=== PATIENT | male | born 1940 | race African-American/Black ===

== ENCOUNTER → 2017-04-29 | Outpatient (CLI) | payer MEDICARE | END | disposition home or self-care (01) | LOC: PVL 09:17 | PROVIDERS: ATTEND Internal Medicine Nephrology | DX: I73.9 Peripheral vascular disease, unspecified (principal) | CPT/HCPCS: 93923 ==

== ENCOUNTER 2017-11-20 19:00 | Inpatient (IN) | payer MEDICARE ==
[~2017-11-20] VITALS: Ht 180.3 cm; Wt 83.5 kg
[~2017-11-20 19:00] MED LIST: AMLO10TA80 PO; CLOP75TA16 PO; FURO40TA5 PO; HYDR-4134 PO; OLME40TA11 PO; RAMI10CA19 PO; ROSU20TA PO
[2017-11-20 19:45] VITALS: BP 156/86
[2017-11-20 20:00] VITALS: BP 156/86
[2017-11-20] MEDS ORDERED: HYDROMORPHONE HCL/PF 2MG/ML CPJ IV PRN (21:45)
[2017-11-20] MEDS ORDERED: MAGNESIUM/ALUMINUM HYDROXIDE/SIMETHICONE 30ML UDC PO PRN (21:45)
[2017-11-20] MEDS ORDERED: LORAZEPAM 2MG/ML CPJ IV PRN (21:45)
[2017-11-20] MEDS ORDERED: HYDROCODONE/ACETAMINOPHEN 5/325MG TABLET PO PRN (21:45)
[2017-11-20] MEDS ORDERED: ONDANSETRON HCL 4MG/2ML INJ IV PRN (21:45)
[2017-11-20] MEDS ORDERED: DIPHENHYDRAMINE 50MG/ML VIAL IV PRN (21:45)
[2017-11-20] MEDS ORDERED: GUAIFENESIN 200MG/10ML SUGAR FREE UDC PO PRN (21:45)
[2017-11-20] MEDS ORDERED: IPRATROPIUM/ALBUTEROL 0.5-3(2.5)MG/3ML NEB HHN PRN (21:45)
[2017-11-20] MEDS ORDERED: NA PHOS,M-B/NA PHOS,DI-BA ENEMA 118ML PR PRN (21:45)
[2017-11-20] MEDS: LABETALOL HCL 100MG TABLET PO SCH (22:00)
[2017-11-20] MEDS: ATORVASTATIN CALCIUM 10MG TABLET PO SCH (23:17)
[2017-11-20] MEDS: LOSARTAN POTASSIUM 50 MG TABLET PO SCH (23:18)
[2017-11-21] MEDS: HYDRALAZINE HCL 50MG TABLET PO SCH ×5 (06:32→23:21)
[2017-11-21 08:30] VITALS: BP 150/69
[2017-11-21] MEDS: LABETALOL HCL 100MG TABLET PO SCH ×2 (08:57→22:00)
[2017-11-21] MEDS: AMLODIPINE 10MG TABLET PO SCH (08:58)
[2017-11-21] MEDS: ASPIRIN 81MG EC TABLET PO SCH (08:58)
[2017-11-21] MEDS: LOSARTAN POTASSIUM 50 MG TABLET PO SCH ×2 (08:58→20:59)
[2017-11-21] MEDS: ENOXAPARIN 40MG/0.4ML SYR SUBCUT SCH (09:03)
[2017-11-21 20:00] VITALS: BP 125/71
[2017-11-21] MEDS: ATORVASTATIN CALCIUM 10MG TABLET PO SCH (20:59)
[2017-11-22] MEDS: HYDRALAZINE HCL 50MG TABLET PO SCH ×3 (06:32→17:32)
[2017-11-22 08:00] VITALS: BP 104/59
[2017-11-22] MEDS: AMLODIPINE 10MG TABLET PO SCH (08:49)
[2017-11-22] MEDS: ENOXAPARIN 40MG/0.4ML SYR SUBCUT SCH (08:49)
[2017-11-22] MEDS: LOSARTAN POTASSIUM 50 MG TABLET PO SCH ×2 (08:49→22:30)
[2017-11-22] MEDS: ASPIRIN 81MG EC TABLET PO SCH (08:49)
[2017-11-22] MEDS: LABETALOL HCL 100MG TABLET PO SCH ×2 (08:49→21:00)
[2017-11-22 19:53] VITALS: BP 120/67
[2017-11-22] MEDS: ATORVASTATIN CALCIUM 10MG TABLET PO SCH (22:30)
[2017-11-23] MEDS: HYDRALAZINE HCL 50MG TABLET PO SCH ×4 (00:58→18:02)
[2017-11-23 06:15] LABS: BASOPHILS % 0.7 % (0.0-2.0); EOSINOPHILS % 4.2 % (0.0-5.0); HEMATOCRIT. 37.2 % (42.0-52.0); HEMOGLOBIN. 12.4 g/dL (14.0-18.0); LYMPHOCYTES % 31.9 % (20.0-50.0); MEAN CORPUSCULAR VOLUME 93.1 fL (80.0-94.0); MEAN PLATELET VOLUME 8.1 fl (7.4-10.4); MONOCYTES % 11.3 % (2.0-8.0); NEUTROPHILS % 51.9 % (40.0-76.0); PLATELET 252 x1000/uL (130-400); RED BLOOD CELL COUNT 3.99 mill/uL (4.7-6.1); RED CELL DISTRIBUTION WIDTH 15.4 % (11.6-14.6)
[2017-11-23 08:05] LABS: CHLORIDE 111 mEq/L (98-107)
[2017-11-23 08:13] VITALS: BP 125/67
[2017-11-23] MEDS ORDERED: ASPIRIN 81MG EC TABLET PO SCH (09:00)
[2017-11-23] MEDS: DOCUSATE SODIUM 100MG CAPSULE PO PRN (09:06)
[2017-11-23] MEDS: LOSARTAN POTASSIUM 50 MG TABLET PO SCH ×2 (09:07→21:07)
[2017-11-23] MEDS: ASPIRIN 81MG EC TABLET PO SCH (09:07)
[2017-11-23] MEDS: AMLODIPINE 10MG TABLET PO SCH (09:08)
[2017-11-23] MEDS: ENOXAPARIN 40MG/0.4ML SYR SUBCUT SCH (09:08)
[2017-11-23] MEDS: LABETALOL HCL 100MG TABLET PO SCH ×2 (09:13→21:00)
[2017-11-23 20:00] VITALS: BP 135/81
[2017-11-23] MEDS: ATORVASTATIN CALCIUM 10MG TABLET PO SCH (21:07)
[2017-11-24] MEDS: HYDRALAZINE HCL 50MG TABLET PO SCH ×4 (06:12→18:10)
[2017-11-24 08:00] VITALS: BP 140/70
[2017-11-24] MEDS: ENOXAPARIN 40MG/0.4ML SYR SUBCUT SCH (08:16)
[2017-11-24] MEDS: LABETALOL HCL 100MG TABLET PO SCH ×2 (08:17→21:00)
[2017-11-24] MEDS: AMLODIPINE 10MG TABLET PO SCH (08:18)
[2017-11-24] MEDS: LOSARTAN POTASSIUM 50 MG TABLET PO SCH ×2 (08:18→21:41)
[2017-11-24] MEDS: ASPIRIN 81MG EC TABLET PO SCH (08:18)
[2017-11-24] MEDS: ACETAMINOPHEN 325MG TABLET PO PRN (11:03)
[2017-11-24 20:00] VITALS: BP 120/91
[2017-11-24] MEDS: ATORVASTATIN CALCIUM 10MG TABLET PO SCH (21:41)
[2017-11-25] MEDS: HYDRALAZINE HCL 50MG TABLET PO SCH ×4 (00:57→17:46)
[2017-11-25 08:13] VITALS: BP 123/63
[2017-11-25] MEDS: AMLODIPINE 10MG TABLET PO SCH (09:00)
[2017-11-25] MEDS: LABETALOL HCL 100MG TABLET PO SCH ×2 (09:00→21:00)
[2017-11-25] MEDS: LOSARTAN POTASSIUM 50 MG TABLET PO SCH ×2 (09:23→21:33)
[2017-11-25] MEDS: ENOXAPARIN 40MG/0.4ML SYR SUBCUT SCH (09:24)
[2017-11-25] MEDS: ASPIRIN 81MG EC TABLET PO SCH (09:24)
[2017-11-25 20:00] VITALS: BP 139/70
[2017-11-25] MEDS: ATORVASTATIN CALCIUM 10MG TABLET PO SCH (21:33)
[2017-11-26] MEDS: HYDRALAZINE HCL 50MG TABLET PO SCH ×5 (00:53→23:58)
[2017-11-26 08:09] VITALS: BP 128/69
[2017-11-26] MEDS: AMLODIPINE 10MG TABLET PO SCH (09:14)
[2017-11-26] MEDS: LABETALOL HCL 100MG TABLET PO SCH ×2 (09:14→20:28)
[2017-11-26] MEDS: ASPIRIN 81MG EC TABLET PO SCH (09:14)
[2017-11-26] MEDS: LOSARTAN POTASSIUM 50 MG TABLET PO SCH ×2 (09:14→20:27)
[2017-11-26] MEDS: ENOXAPARIN 40MG/0.4ML SYR SUBCUT SCH (09:15)
[2017-11-26] MEDS: BISACODYL 5MG TABLET PO PRN (14:57)
[2017-11-26 20:00] VITALS: BP 136/72
[2017-11-26] MEDS: ATORVASTATIN CALCIUM 10MG TABLET PO SCH (20:27)
[2017-11-27] MEDS: HYDRALAZINE HCL 50MG TABLET PO SCH ×4 (05:09→23:28)
[2017-11-27 08:00] VITALS: BP 129/68
[2017-11-27] MEDS: ASPIRIN 81MG EC TABLET PO SCH (08:54)
[2017-11-27] MEDS: LOSARTAN POTASSIUM 50 MG TABLET PO SCH ×2 (08:54→20:57)
[2017-11-27] MEDS: AMLODIPINE 10MG TABLET PO SCH (08:54)
[2017-11-27] MEDS: LABETALOL HCL 100MG TABLET PO SCH ×2 (08:54→20:57)
[2017-11-27] MEDS: ENOXAPARIN 40MG/0.4ML SYR SUBCUT SCH (08:55)
[2017-11-27 20:00] VITALS: BP 137/62
[2017-11-27] MEDS: ATORVASTATIN CALCIUM 10MG TABLET PO SCH (20:57)
[2017-11-28] MEDS: HYDRALAZINE HCL 50MG TABLET PO SCH ×3 (05:36→18:03)
[2017-11-28 08:00] VITALS: BP 112/67
[2017-11-28] MEDS: AMLODIPINE 10MG TABLET PO SCH (08:47)
[2017-11-28] MEDS: LABETALOL HCL 100MG TABLET PO SCH ×2 (08:48→21:00)
[2017-11-28] MEDS: ASPIRIN 81MG EC TABLET PO SCH (08:48)
[2017-11-28] MEDS: LOSARTAN POTASSIUM 50 MG TABLET PO SCH ×2 (08:49→21:46)
[2017-11-28] MEDS: ENOXAPARIN 40MG/0.4ML SYR SUBCUT SCH (08:49)
[2017-11-28 20:00] VITALS: BP 120/59
[2017-11-28] MEDS: ATORVASTATIN CALCIUM 10MG TABLET PO SCH (21:46)
[2017-11-29] MEDS: HYDRALAZINE HCL 50MG TABLET PO SCH ×4 (06:00→17:16)
[2017-11-29 08:06] VITALS: BP 130/79
[2017-11-29] MEDS: AMLODIPINE 10MG TABLET PO SCH (08:58)
[2017-11-29] MEDS: LABETALOL HCL 100MG TABLET PO SCH ×2 (08:58→20:30)
[2017-11-29] MEDS: ASPIRIN 81MG EC TABLET PO SCH (08:58)
[2017-11-29] MEDS: LOSARTAN POTASSIUM 50 MG TABLET PO SCH ×2 (08:58→20:29)
[2017-11-29] MEDS: ENOXAPARIN 40MG/0.4ML SYR SUBCUT SCH (08:59)
[2017-11-29 20:00] VITALS: BP 137/68
[2017-11-29] MEDS: ATORVASTATIN CALCIUM 10MG TABLET PO SCH (20:29)
[2017-11-29] MEDS: BISACODYL 5MG TABLET PO PRN (20:30)
[2017-11-30] MEDS: HYDRALAZINE HCL 50MG TABLET PO SCH ×4 (01:01→18:04)
[2017-11-30 07:02] LABS: BASOPHILS % 0.5 % (0.0-2.0); EOSINOPHILS % 4.3 % (0.0-5.0); HEMATOCRIT. 35.2 % (42.0-52.0); HEMOGLOBIN. 11.6 g/dL (14.0-18.0); LYMPHOCYTES % 41.2 % (20.0-50.0); MEAN CORPUSCULAR HEMOGLOBIN 30.5 pg (28.0-32.0); MEAN CORPUSCULAR VOLUME 92.6 fL (80.0-94.0); MEAN PLATELET VOLUME 7.9 fl (7.4-10.4); MONOCYTES % 10.3 % (2.0-8.0); NEUTROPHILS % 43.7 % (40.0-76.0); PLATELET 262 x1000/uL (130-400); RED CELL DISTRIBUTION WIDTH 14.6 % (11.6-14.6)
[2017-11-30 07:16] LABS: CHLORIDE 108 mEq/L (98-107)
[2017-11-30 08:00] VITALS: BP 111/63
[2017-11-30] MEDS: AMLODIPINE 10MG TABLET PO SCH (08:10)
[2017-11-30] MEDS: DOCUSATE SODIUM 100MG CAPSULE PO PRN (08:10)
[2017-11-30] MEDS: LOSARTAN POTASSIUM 50 MG TABLET PO SCH ×2 (08:10→21:14)
[2017-11-30] MEDS: ENOXAPARIN 40MG/0.4ML SYR SUBCUT SCH (08:10)
[2017-11-30] MEDS: ASPIRIN 81MG EC TABLET PO SCH (08:11)
[2017-11-30] MEDS: LABETALOL HCL 100MG TABLET PO SCH ×2 (08:11→21:00)
[2017-11-30] MEDS: LACTULOSE 20G/30ML UDC PO SCH ×2 (13:06→21:15)
[2017-11-30 20:00] VITALS: BP 131/68
[2017-11-30] MEDS: ATORVASTATIN CALCIUM 10MG TABLET PO SCH (21:13)
[2017-12-01] MEDS: LACTULOSE 20G/30ML UDC PO SCH ×3 (06:00→21:18)
[2017-12-01] MEDS: HYDRALAZINE HCL 50MG TABLET PO SCH ×5 (06:02→23:14)
[2017-12-01 08:03] VITALS: BP 116/68
[2017-12-01] MEDS: ASPIRIN 81MG EC TABLET PO SCH (08:16)
[2017-12-01] MEDS: LABETALOL HCL 100MG TABLET PO SCH ×2 (08:16→21:18)
[2017-12-01] MEDS: ENOXAPARIN 40MG/0.4ML SYR SUBCUT SCH (08:17)
[2017-12-01] MEDS: AMLODIPINE 10MG TABLET PO SCH (09:00)
[2017-12-01] MEDS: LOSARTAN POTASSIUM 50 MG TABLET PO SCH ×2 (09:00→21:17)
[2017-12-01 12:15] VITALS: BP 98/55
[2017-12-01 20:00] VITALS: BP 135/78
[2017-12-01] MEDS: ATORVASTATIN CALCIUM 10MG TABLET PO SCH (21:17)
[2017-12-02] MEDS: HYDRALAZINE HCL 50MG TABLET PO SCH (05:47)
[2017-12-02] MEDS: LACTULOSE 20G/30ML UDC PO SCH ×3 (05:48→21:03)
[2017-12-02 07:57] VITALS: BP 110/59
[2017-12-02] MEDS: LOSARTAN POTASSIUM 50 MG TABLET PO SCH ×2 (08:43→20:48)
[2017-12-02] MEDS: AMLODIPINE 10MG TABLET PO SCH (08:43)
[2017-12-02] MEDS: LABETALOL HCL 100MG TABLET PO SCH ×2 (08:44→20:48)
[2017-12-02] MEDS: ASPIRIN 81MG EC TABLET PO SCH (09:05)
[2017-12-02] MEDS: ENOXAPARIN 40MG/0.4ML SYR SUBCUT SCH (09:06)
[2017-12-02 20:00] VITALS: BP 133/76
[2017-12-02] MEDS: ATORVASTATIN CALCIUM 10MG TABLET PO SCH (20:48)
[2017-12-02] MEDS: ACETAMINOPHEN 325MG TABLET PO PRN (23:48)
[2017-12-03] MEDS: LACTULOSE 20G/30ML UDC PO SCH ×3 (05:09→21:32)
[2017-12-03 08:00] VITALS: BP 127/70
[2017-12-03] MEDS: AMLODIPINE 10MG TABLET PO SCH (09:00)
[2017-12-03] MEDS: LABETALOL HCL 100MG TABLET PO SCH ×2 (09:10→20:30)
[2017-12-03] MEDS: LOSARTAN POTASSIUM 50 MG TABLET PO SCH ×2 (09:10→20:29)
[2017-12-03] MEDS: ASPIRIN 81MG EC TABLET PO SCH (09:10)
[2017-12-03] MEDS: ENOXAPARIN 40MG/0.4ML SYR SUBCUT SCH (09:11)
[2017-12-03 20:00] VITALS: BP 125/60
[2017-12-03] MEDS: ATORVASTATIN CALCIUM 10MG TABLET PO SCH (20:29)
[2017-12-04] MEDS: LACTULOSE 20G/30ML UDC PO SCH ×3 (05:30→20:49)
[2017-12-04 08:00] VITALS: BP 132/74
[2017-12-04] MEDS: AMLODIPINE 10MG TABLET PO SCH (08:38)
[2017-12-04] MEDS: LOSARTAN POTASSIUM 50 MG TABLET PO SCH ×2 (08:38→20:49)
[2017-12-04] MEDS: ENOXAPARIN 40MG/0.4ML SYR SUBCUT SCH (08:39)
[2017-12-04] MEDS: LABETALOL HCL 100MG TABLET PO SCH ×2 (08:39→20:49)
[2017-12-04] MEDS: ASPIRIN 81MG EC TABLET PO SCH (08:39)
[2017-12-04 20:00] VITALS: BP 121/64
[2017-12-04] MEDS: ATORVASTATIN CALCIUM 10MG TABLET PO SCH (20:49)
[2017-12-05] MEDS: LACTULOSE 20G/30ML UDC PO SCH (05:55)
[2017-12-05 08:18] VITALS: BP 131/74
[2017-12-05] MEDS: AMLODIPINE 10MG TABLET PO SCH (08:29)
[2017-12-05] MEDS: LABETALOL HCL 100MG TABLET PO SCH ×2 (08:29→20:45)
[2017-12-05] MEDS: ASPIRIN 81MG EC TABLET PO SCH (08:29)
[2017-12-05] MEDS: LOSARTAN POTASSIUM 50 MG TABLET PO SCH ×2 (08:29→20:45)
[2017-12-05] MEDS: ENOXAPARIN 40MG/0.4ML SYR SUBCUT SCH (08:30)
[2017-12-05 20:00] VITALS: BP 122/62
[2017-12-05] MEDS: ATORVASTATIN CALCIUM 10MG TABLET PO SCH (20:45)
[2017-12-06 07:59] VITALS: BP 122/69
[2017-12-06] MEDS: ASPIRIN 81MG EC TABLET PO SCH (08:23)
[2017-12-06] MEDS: LOSARTAN POTASSIUM 50 MG TABLET PO SCH ×2 (08:23→21:25)
[2017-12-06] MEDS: ENOXAPARIN 40MG/0.4ML SYR SUBCUT SCH (08:24)
[2017-12-06] MEDS: LABETALOL HCL 100MG TABLET PO SCH ×3 (08:29→21:00)
[2017-12-06] MEDS: AMLODIPINE 10MG TABLET PO SCH (08:30)
[2017-12-06 20:00] VITALS: BP 128/59
[2017-12-06] MEDS: ATORVASTATIN CALCIUM 10MG TABLET PO SCH (21:25)
[2017-12-07 07:19] LABS: BASOPHILS % 0.5 % (0.0-2.0); EOSINOPHILS % 3.6 % (0.0-5.0); HEMATOCRIT. 35.2 % (42.0-52.0); HEMOGLOBIN. 11.6 g/dL (14.0-18.0); LYMPHOCYTES % 39.6 % (20.0-50.0); MEAN CORPUSCULAR HEMOGLOBIN 30.4 pg (28.0-32.0); MEAN CORPUSCULAR VOLUME 92.1 fL (80.0-94.0); MONOCYTES % 9.4 % (2.0-8.0); NEUTROPHILS % 46.9 % (40.0-76.0); PLATELET 262 x1000/uL (130-400); RED BLOOD CELL COUNT 3.83 mill/uL (4.7-6.1); RED CELL DISTRIBUTION WIDTH 14.7 % (11.6-14.6)
[2017-12-07 07:49] LABS: CHLORIDE 109 mEq/L (98-107)
[2017-12-07 08:00] VITALS: BP 137/77
[2017-12-07] MEDS: ASPIRIN 81MG EC TABLET PO SCH (08:07)
[2017-12-07] MEDS: AMLODIPINE 10MG TABLET PO SCH (08:07)
[2017-12-07] MEDS: LOSARTAN POTASSIUM 50 MG TABLET PO SCH ×2 (08:07→21:42)
[2017-12-07] MEDS: LABETALOL HCL 100MG TABLET PO SCH ×2 (08:08→21:00)
[2017-12-07] MEDS: ENOXAPARIN 40MG/0.4ML SYR SUBCUT SCH (08:08)
[2017-12-07 20:00] VITALS: BP 132/79
[2017-12-07] MEDS: ATORVASTATIN CALCIUM 10MG TABLET PO SCH (21:42)
[2017-12-08 08:00] VITALS: BP 134/72
[2017-12-08] MEDS: LOSARTAN POTASSIUM 50 MG TABLET PO SCH ×2 (08:16→21:08)
[2017-12-08] MEDS: ASPIRIN 81MG EC TABLET PO SCH (08:16)
[2017-12-08] MEDS: ENOXAPARIN 40MG/0.4ML SYR SUBCUT SCH (08:16)
[2017-12-08] MEDS: AMLODIPINE 10MG TABLET PO SCH (08:16)
[2017-12-08] MEDS: LABETALOL HCL 100MG TABLET PO SCH ×2 (08:17→21:00)
[2017-12-08 20:00] VITALS: BP 133/68
[2017-12-08] MEDS: ATORVASTATIN CALCIUM 10MG TABLET PO SCH (21:08)
[2017-12-09 08:27] VITALS: BP 133/75
[2017-12-09] MEDS: AMLODIPINE 10MG TABLET PO SCH (09:55)
[2017-12-09] MEDS: TAMSULOSIN HCL 0.4MG SR CAPSULE PO SCH (09:55)
[2017-12-09] MEDS: ENOXAPARIN 40MG/0.4ML SYR SUBCUT SCH (09:55)
[2017-12-09] MEDS: ASPIRIN 81MG EC TABLET PO SCH (09:56)
[2017-12-09] MEDS: LOSARTAN POTASSIUM 50 MG TABLET PO SCH ×2 (09:56→20:36)
[2017-12-09] MEDS: LABETALOL HCL 100MG TABLET PO SCH ×2 (09:56→20:36)
[2017-12-09 20:00] VITALS: BP 123/62
[2017-12-09] MEDS: ATORVASTATIN CALCIUM 10MG TABLET PO SCH (20:36)
[2017-12-10 08:00] VITALS: BP 137/70
[2017-12-10] MEDS: LABETALOL HCL 100MG TABLET PO SCH ×2 (08:13→20:55)
[2017-12-10] MEDS: AMLODIPINE 10MG TABLET PO SCH (08:14)
[2017-12-10] MEDS: TAMSULOSIN HCL 0.4MG SR CAPSULE PO SCH (08:14)
[2017-12-10] MEDS: LOSARTAN POTASSIUM 50 MG TABLET PO SCH ×2 (08:14→20:55)
[2017-12-10] MEDS: ASPIRIN 81MG EC TABLET PO SCH (08:14)
[2017-12-10] MEDS: ENOXAPARIN 40MG/0.4ML SYR SUBCUT SCH (08:17)
[2017-12-10 20:00] VITALS: BP 127/66
[2017-12-10] MEDS: ATORVASTATIN CALCIUM 10MG TABLET PO SCH (20:55)
[2017-12-11 08:00] VITALS: BP 142/64
[2017-12-11] MEDS: ENOXAPARIN 40MG/0.4ML SYR SUBCUT SCH (08:25)
[2017-12-11] MEDS: TAMSULOSIN HCL 0.4MG SR CAPSULE PO SCH (08:26)
[2017-12-11] MEDS: AMLODIPINE 10MG TABLET PO SCH (08:26)
[2017-12-11] MEDS: LABETALOL HCL 100MG TABLET PO SCH ×2 (08:27→21:03)
[2017-12-11] MEDS: ASPIRIN 81MG EC TABLET PO SCH (08:27)
[2017-12-11] MEDS: LOSARTAN POTASSIUM 50 MG TABLET PO SCH ×2 (08:27→20:07)
[2017-12-11 20:00] VITALS: BP 113/60
[2017-12-11] MEDS: ATORVASTATIN CALCIUM 10MG TABLET PO SCH (20:07)
[2017-12-12 08:00] VITALS: BP 130/74
[2017-12-12] MEDS: AMLODIPINE 10MG TABLET PO SCH (08:34)
[2017-12-12] MEDS: LABETALOL HCL 100MG TABLET PO SCH ×2 (08:34→20:34)
[2017-12-12] MEDS: LOSARTAN POTASSIUM 50 MG TABLET PO SCH ×2 (08:35→20:33)
[2017-12-12] MEDS: ASPIRIN 81MG EC TABLET PO SCH (08:35)
[2017-12-12] MEDS: TAMSULOSIN HCL 0.4MG SR CAPSULE PO SCH (08:35)
[2017-12-12] MEDS: ENOXAPARIN 40MG/0.4ML SYR SUBCUT SCH (08:35)
[2017-12-12 20:00] VITALS: BP 116/64
[2017-12-12] MEDS: ATORVASTATIN CALCIUM 10MG TABLET PO SCH (20:33)
[2017-12-13 08:09] VITALS: BP 98/62
[2017-12-13 08:32] VITALS: BP 123/59
[2017-12-13] MEDS: LOSARTAN POTASSIUM 50 MG TABLET PO SCH ×2 (08:32→20:46)
[2017-12-13] MEDS: TAMSULOSIN HCL 0.4MG SR CAPSULE PO SCH (08:32)
[2017-12-13] MEDS: ASPIRIN 81MG EC TABLET PO SCH (08:32)
[2017-12-13] MEDS: ENOXAPARIN 40MG/0.4ML SYR SUBCUT SCH (08:32)
[2017-12-13] MEDS: AMLODIPINE 10MG TABLET PO SCH (09:00)
[2017-12-13] MEDS: LABETALOL HCL 100MG TABLET PO SCH ×2 (09:00→20:46)
[2017-12-13 10:08] VITALS: BP 109/59
[2017-12-13 20:00] VITALS: BP 132/71
[2017-12-13] MEDS: ATORVASTATIN CALCIUM 10MG TABLET PO SCH (20:46)
[2017-12-14 06:43] LABS: BASOPHILS % 0.3 % (0.0-2.0); EOSINOPHILS % 4.3 % (0.0-5.0); HEMOGLOBIN. 10.9 g/dL (14.0-18.0); LYMPHOCYTES % 41.5 % (20.0-50.0); MEAN CORPUSCULAR HEMOGLOBIN 30.3 pg (28.0-32.0); MEAN CORPUSCULAR VOLUME 91.9 fL (80.0-94.0); MEAN PLATELET VOLUME 7.8 fl (7.4-10.4); MONOCYTES % 10.2 % (2.0-8.0); NEUTROPHILS % 43.7 % (40.0-76.0); PLATELET 213 x1000/uL (130-400); RED BLOOD CELL COUNT 3.59 mill/uL (4.7-6.1); RED CELL DISTRIBUTION WIDTH 14.7 % (11.6-14.6)
[2017-12-14 07:07] LABS: CHLORIDE 108 mEq/L (98-107)
[2017-12-14 08:29] VITALS: BP 136/72
[2017-12-14] MEDS: LABETALOL HCL 100MG TABLET PO SCH ×2 (08:45→21:59)
[2017-12-14] MEDS: LOSARTAN POTASSIUM 50 MG TABLET PO SCH ×2 (08:45→21:58)
[2017-12-14] MEDS: ASPIRIN 81MG EC TABLET PO SCH (08:46)
[2017-12-14] MEDS: TAMSULOSIN HCL 0.4MG SR CAPSULE PO SCH (08:46)
[2017-12-14] MEDS: AMLODIPINE 10MG TABLET PO SCH (08:46)
[2017-12-14] MEDS: ENOXAPARIN 40MG/0.4ML SYR SUBCUT SCH (08:47)
[2017-12-14 20:00] VITALS: BP 114/61
[2017-12-14] MEDS: ATORVASTATIN CALCIUM 10MG TABLET PO SCH (21:58)
[2017-12-15 08:00] VITALS: BP 134/77
[2017-12-15] MEDS: ASPIRIN 81MG EC TABLET PO SCH (09:19)
[2017-12-15] MEDS: TAMSULOSIN HCL 0.4MG SR CAPSULE PO SCH (09:20)
[2017-12-15] MEDS: ENOXAPARIN 40MG/0.4ML SYR SUBCUT SCH (09:21)
[2017-12-15] MEDS: LOSARTAN POTASSIUM 50 MG TABLET PO SCH (09:49)
[2017-12-15] MEDS: AMLODIPINE 10MG TABLET PO SCH (09:49)
[2017-12-15] MEDS: LABETALOL HCL 100MG TABLET PO SCH (09:50)
[2017-12-15 13:40] VITALS: BP 119/66
== END 2017-12-15 15:30 | disposition home health service (06) | DRG 65 ==
PROVIDERS: ADMIT Psychiatry & Neurology Neurology; ATTEND Internal Medicine
DX: I63.9 Cerebral infarction, unspecified (principal); G81.94 Hemiplegia, unspecified affecting left nondominant side; G62.9 Polyneuropathy, unspecified; I95.9 Hypotension, unspecified; F01.50 Vascular dementia, unspecified severity, without behavioral disturbance, psychotic disturbance, mood disturbance, and anxiety; I73.9 Peripheral vascular disease, unspecified; N18.2 Chronic kidney disease, stage 2 (mild); R29.6 Repeated falls; I12.9 Hypertensive chronic kidney disease with stage 1 through stage 4 chronic kidney disease, or unspecified chronic kidney disease; G90.8 Other disorders of autonomic nervous system; F17.200 Nicotine dependence, unspecified, uncomplicated; E78.5 Hyperlipidemia, unspecified; M19.90 Unspecified osteoarthritis, unspecified site; K59.00 Constipation, unspecified; F41.9 Anxiety disorder, unspecified; F06.31 Mood disorder due to known physiological condition with depressive features; N40.1 Benign prostatic hyperplasia with lower urinary tract symptoms; R33.8 Other retention of urine; Z82.49 Family history of ischemic heart disease and other diseases of the circulatory system; Z83.3 Family history of diabetes mellitus; Z79.82 Long term (current) use of aspirin; Z79.899 Other long term (current) drug therapy; Z86.73 Personal history of transient ischemic attack (TIA), and cerebral infarction without residual deficits
CPT/HCPCS: 36415; 80048; 82962; 83735; 84153; 92523; 97110; 97112; 97116; 97150; 97163; 97166; 97530; 97535; 97760; G0515; J1650; G0103

== ENCOUNTER → 2018-11-03 | Outpatient (CLI) | payer MEDICARE, MEDICAID ==
[~2018-11-03] MED LIST changes: -CLOP75TA16 PO; -FURO40TA5 PO; -HYDR-4134 PO; -OLME40TA11 PO; -RAMI10CA19 PO; -ROSU20TA PO
== END | disposition home or self-care (01) ==
LOC: PVL 09:00
PROVIDERS: ATTEND Internal Medicine Nephrology
DX: I77.1 Stricture of artery (principal)
CPT/HCPCS: 93923

== ENCOUNTER → 2019-01-19 | Outpatient (CLI) | payer MEDICARE, OTHER ==
[~2019-01-19] MED LIST changes: +REGADENOSON 0.4 MG/5 ML IV ONE
== END | disposition home or self-care (01) ==
LOC: NM 06:15
PROVIDERS: ATTEND Internal Medicine Nephrology
DX: I70.8 Atherosclerosis of other arteries (principal); I12.0 Hypertensive chronic kidney disease with stage 5 chronic kidney disease or end stage renal disease; N18.6 End stage renal disease; Z99.2 Dependence on renal dialysis
CPT/HCPCS: 78452; 93017; A9500; J2785

== ENCOUNTER 2020-07-16 09:39 | Inpatient (IN) | payer MEDICAID, MEDICARE, OTHER ==
[~2020-07-16] VITALS: Ht 163.8 cm; Wt 85.7 kg
[~2020-07-16 09:39] MED LIST changes: -REGADENOSON 0.4 MG/5 ML IV ONE
[2020-07-16 10:26] LABS: CHLORIDE 110 mEq/L (98-107)
[2020-07-16 10:28] LABS: INR 1.1; PROTHROMBIN TIME 11.7 sec (9.6-11.0)
[2020-07-16 10:29] LABS: ETHANOL BLOOD < 10 mg/dL
[2020-07-16 10:32] LABS: LDL CHOLESTEROL 127 mg/dL (5-100)
[2020-07-16 10:37] LABS: BASOPHILS % 0.4 % (0.0-2.0); EOSINOPHILS % 1.6 % (0.0-5.0); HEMATOCRIT. 43.4 % (42.0-52.0); HEMOGLOBIN. 14.4 g/dL (14.0-18.0); LYMPHOCYTES % 23.3 % (20.0-50.0); MEAN CORPUSCULAR HEMOGLOBIN 31.2 pg (28.0-32.0); MEAN PLATELET VOLUME 7.9 fl (7.4-10.4); MONOCYTES % 8.2 % (2.0-8.0); NEUTROPHILS % 66.5 % (40.0-76.0); PLATELET 261 x1000/uL (130-400); RED BLOOD CELL COUNT 4.62 mill/uL (4.7-6.1); RED CELL DISTRIBUTION WIDTH 15.3 % (11.6-14.6)
[2020-07-16] MEDS ORDERED: ASPIRIN 325MG EC TABLET PO ONE (11:00)
[2020-07-16] MEDS ORDERED: GUAIFENESIN 200MG/10ML SUGAR FREE UDC PO PRN (11:45)
[2020-07-16] MEDS ORDERED: ACETAMINOPHEN 325MG TABLET PO PRN ×2 (11:45)
[2020-07-16] MEDS ORDERED: MAGNESIUM/ALUMINUM HYDROXIDE/SIMETHICONE 30ML UDC PO PRN (11:45)
[2020-07-16] MEDS ORDERED: NITROGLYCERIN 0.4MG TABLET SL SL PRN (11:45)
[2020-07-16] MEDS ORDERED: CLONIDINE 0.1MG TABLET PO PRN (11:45)
[2020-07-16] MEDS ORDERED: DOCUSATE SODIUM 100MG CAPSULE PO PRN (11:45)
[2020-07-16] MEDS ORDERED: ONDANSETRON HCL 4MG/2ML INJ IV PRN (11:45)
[2020-07-16] MEDS ORDERED: IPRATROPIUM/ALBUTEROL 0.5-3(2.5)MG/3ML NEB NEB PRN (11:45)
[2020-07-16] MEDS ORDERED: NA PHOS,M-B/NA PHOS,DI-BA ENEMA 118ML PR PRN (11:45)
[2020-07-16] MEDS ORDERED: TRAMADOL 50MG TABLET PO PRN (11:45)
[2020-07-16] MEDS ORDERED: AMLODIPINE 10MG TABLET PO SCH (12:00)
[2020-07-16] MEDS: ASCORBIC ACID 500 MG TABLET PO SCH (12:49)
[2020-07-16] MEDS: ZINC SULFATE 220 MG ( 50 ) CAPSULE PO SCH (12:49)
[2020-07-16] MEDS: AMLODIPINE 10MG TABLET PO SCH (12:49)
[2020-07-16] MEDS: LOSARTAN POTASSIUM 50 MG TABLET PO SCH ×2 (12:49→17:48)
[2020-07-16] MEDS: ENOXAPARIN 40MG/0.4ML SYR SUBCUT SCH (12:50)
[2020-07-16] MEDS ORDERED: ASPIRIN 81MG EC TABLET PO SCH (13:00)
[2020-07-16] MEDS: CARVEDILOL 12.5MG TABLET PO SCH ×2 (13:13→21:00)
[2020-07-16 13:28] LABS: CLARITY URINE CLEAR (CLEAR); COLOR URINE YELLOW (YELLOW); KETONES URINE NEGATIVE (NEGATIVE); LEUKOCYTE ESTERASE URINE 2+ (NEGATIVE); NITRITE URINE NEGATIVE (NEGATIVE); OCCULT BLOOD URINE TRACE (NEGATIVE); PROTEIN URINE TRACE (NEGATIVE); SPECIFIC GRAVITY URINE 1.028 (1.005-1.030); UROBILINOGEN URINE 0.2 E.U./dL (0.2-1.0)
[2020-07-16] MEDS ORDERED: REGADENOSON 0.4 MG/5 ML IV NR (13:30)
[2020-07-16 13:48] LABS: *AMPHETAMINES SCREEN URINE NEGATIVE (NEGATIVE); *BARBITURATES SCREEN URINE NEGATIVE (NEGATIVE); *BENZODIAZEPINES SCREEN URINE NEGATIVE (NEGATIVE); *COCAINE SCREEN URINE NEGATIVE (NEGATIVE); OPIATES URINE SCREEN NEGATIVE (NEGATIVE); PHENCYCLIDINE URINE SCREEN NEGATIVE (NEGATIVE)
[2020-07-16 13:49] LABS: CANNABINOID URINE SCREEN NEGATIVE (NEGATIVE)
[2020-07-16 13:55] LABS: METHADONE URINE SCREEN NEGATIVE (NEGATIVE)
[2020-07-16 15:55] LABS: CREATINE KINASE 115 IU/L (39-308)
[2020-07-16 15:57] LABS: CREATINE KINASE MB FRACTION 2.3 ng/mL (0.5-3.6)
[2020-07-16] MEDS ORDERED: CEFTRIAXONE 1 G PREMIX 50 ML IV SCH ×2 (16:00)
[2020-07-16] MEDS ORDERED: ZOLPIDEM TARTRATE 5MG TABLET PO PRN (20:00)
[2020-07-16 22:15] VITALS: BP 161/90
[2020-07-16 23:05] VITALS: BP 161/90
[2020-07-17 01:22] LABS: CREATINE KINASE 116 IU/L (39-308)
[2020-07-17 01:23] LABS: CREATINE KINASE MB FRACTION 2.9 ng/mL (0.5-3.6)
[2020-07-17] MEDS: ASCORBIC ACID 500 MG TABLET PO SCH ×3 (01:28→22:37)
[2020-07-17] MEDS: FAMOTIDINE 20MG TABLET PO SCH ×3 (01:28→22:37)
[2020-07-17] MEDS: ATORVASTATIN CALCIUM 10MG TABLET PO SCH ×2 (01:28→22:37)
[2020-07-17 04:00] VITALS: BP 162/88
[2020-07-17 08:00] VITALS: BP 165/98
[2020-07-17] MEDS: ZINC SULFATE 220 MG ( 50 ) CAPSULE PO SCH (09:13)
[2020-07-17] MEDS: ENOXAPARIN 40MG/0.4ML SYR SUBCUT SCH (09:13)
[2020-07-17] MEDS: ASPIRIN 81MG EC TABLET PO SCH (09:13)
[2020-07-17] MEDS: AMLODIPINE 10MG TABLET PO SCH (09:13)
[2020-07-17] MEDS: LOSARTAN POTASSIUM 50 MG TABLET PO SCH ×2 (09:13→16:48)
[2020-07-17] MEDS: CLOPIDOGREL 75MG TABLET PO SCH (09:14)
[2020-07-17] MEDS: CARVEDILOL 12.5MG TABLET PO SCH ×2 (09:14→22:36)
[2020-07-17 12:00] VITALS: BP 158/92
[2020-07-17 16:00] VITALS: BP 160/92
[2020-07-17] MEDS: CEFTRIAXONE 1,000 MG in DEXTROSE 5% WATER 50 ML IV SCH (16:11)
[2020-07-17 20:00] VITALS: BP 129/77
[2020-07-18] VITALS: BP 138/72
[2020-07-18 04:00] VITALS: BP 129/80
[2020-07-18 08:00] VITALS: BP 142/89
[2020-07-18] MEDS: LOSARTAN POTASSIUM 50 MG TABLET PO SCH ×2 (09:24→17:40)
[2020-07-18] MEDS: ENOXAPARIN 40MG/0.4ML SYR SUBCUT SCH (09:24)
[2020-07-18] MEDS: CLOPIDOGREL 75MG TABLET PO SCH (09:24)
[2020-07-18] MEDS: ZINC SULFATE 220 MG ( 50 ) CAPSULE PO SCH (09:26)
[2020-07-18] MEDS: FAMOTIDINE 20MG TABLET PO SCH (09:26)
[2020-07-18] MEDS: CARVEDILOL 12.5MG TABLET PO SCH (09:26)
[2020-07-18] MEDS: ASPIRIN 81MG EC TABLET PO SCH (09:26)
[2020-07-18] MEDS: ASCORBIC ACID 500 MG TABLET PO SCH (09:26)
[2020-07-18] MEDS: AMLODIPINE 10MG TABLET PO SCH (09:26)
[2020-07-18 12:00] VITALS: BP 142/89
[2020-07-18] MEDS: CEFTRIAXONE 1,000 MG in DEXTROSE 5% WATER 50 ML IV SCH (16:39)
[2020-07-18 17:37] VITALS: BP 142/89
[2020-07-18 18:00] VITALS: BP 138/78
== END 2020-07-18 19:55 | disposition home or self-care (01) | DRG 69 ==
LOC: ER 09:39 → 5WST 11:00 → EDBEDREQSVC 11:10 → EDBEDREQ 11:10 → SUPCPDRO 11:38 → ENRESERV 21:34
PROVIDERS: ADMIT Internal Medicine; ATTEND Internal Medicine
DX: G45.9 Transient cerebral ischemic attack, unspecified (principal); I69.354 Hemiplegia and hemiparesis following cerebral infarction affecting left non-dominant side; N39.0 Urinary tract infection, site not specified; I16.1 Hypertensive emergency; I12.9 Hypertensive chronic kidney disease with stage 1 through stage 4 chronic kidney disease, or unspecified chronic kidney disease; N18.2 Chronic kidney disease, stage 2 (mild); E78.00 Pure hypercholesterolemia, unspecified; E78.5 Hyperlipidemia, unspecified; I73.9 Peripheral vascular disease, unspecified; M19.90 Unspecified osteoarthritis, unspecified site; J32.9 Chronic sinusitis, unspecified; R35.1 Nocturia; I25.10 Atherosclerotic heart disease of native coronary artery without angina pectoris; Z82.49 Family history of ischemic heart disease and other diseases of the circulatory system; Z91.19 Patient's noncompliance with other medical treatment and regimen; Z87.891 Personal history of nicotine dependence; Z91.14 Patient's other noncompliance with medication regimen; Z79.02 Long term (current) use of antithrombotics/antiplatelets; Z79.899 Other long term (current) drug therapy
CPT/HCPCS: 36415; 70496; 70551; 71045; 80053; 80061; 80305; 80320; 81003; 82550; 82553; 82962; 83036; 83721; 84484; 85025; 93005; 93306; 93880; 93923; 93970; 99291; A9500; J0696; J1650; J7060; Q9967; G0480

== ENCOUNTER 2022-06-29 05:58 | Emergency (ER) | payer MEDICARE ==
[~2022-06-29] VITALS: Ht 180.3 cm; Wt 89.0 kg
[2022-06-29] MEDS ORDERED: IBUPROFEN 600MG TABLET PO STA (06:14)
[2022-06-29 09:51] VITALS: BP 117/71
== END 2022-06-29 10:15 | disposition home or self-care (01) ==
LOC: ER 05:58
DX: M79.604 Pain in right leg (principal); M79.605 Pain in left leg; I10 Essential (primary) hypertension; Z87.891 Personal history of nicotine dependence
CPT/HCPCS: 93970; 99284

== ENCOUNTER 2023-06-13 17:25 | Emergency (ER) | payer MEDICARE ==
[~2023-06-13] VITALS: Ht 182.9 cm; Wt 90.0 kg
[2023-06-13 17:34] VITALS: O2SAT 100
[2023-06-13] MEDS ORDERED: CLONIDINE 0.2MG TABLET PO ONE (18:00)
[2023-06-13 18:28] LABS: BASOPHILS % 0.6 % (0.0-2.0); EOSINOPHILS % 3.1 % (0.0-5.0); HEMATOCRIT. 38.7 % (42.0-52.0); HEMOGLOBIN. 12.4 g/dL (14.0-18.0); LYMPHOCYTES % 25.1 % (20.0-50.0); MEAN CORPUSCULAR HEMOGLOBIN 30.8 pg (28.0-32.0); MEAN CORPUSCULAR HGB CONC 32.1 g/dL (31.0-37.0); MEAN PLATELET VOLUME 8.2 fl (7.4-10.4); MONOCYTES % 11.5 % (2.0-8.0); NEUTROPHILS % 59.7 % (40.0-76.0); PLATELET 225 x1000/uL (130-400); RED BLOOD CELL COUNT 4.03 mill/uL (4.7-6.1); RED CELL DISTRIBUTION WIDTH 15.3 % (11.6-14.6); WHITE BLOOD COUNT 4.2 x1000/uL (4.5-11.0)
[2023-06-13] MEDS ORDERED: CLONIDINE 0.1MG TABLET PO NR (18:30)
[2023-06-13 18:33] LABS: CALCIUM 7.8 mg/dL (8.5-10.1); CHLORIDE 111 mEq/L (98-107); INDEX HEMOLYSI 1 (1-3); INDEX ICTERIC 1 (1-4); INDEX LIPEMIC 1 (1-3); POTASSIUM 3.4 mEq/L (3.5-5.1); SODIUM 139 mEq/L (136-145)
[2023-06-13 18:35] LABS: INR 1.1; PARTIAL THROMBOPLASTIN TIME 29.6 sec (23.4-31.0); PROTHROMBIN TIME 11.8 sec (9.6-11.0)
[2023-06-13 18:42] LABS: ALANINE AMINOTRANSFERASE 19 IU/L (13-61); ALBUMIN 3.2 g/dL (3.4-5.0); ASPARTATE AMINOTRANSFERASE 15 IU/L (15-37); BILIRUBIN TOTAL 0.3 mg/dL (0.1-1.0); CARBON DIOXIDE 25 mEq/L (21-32); GLUCOSE 96 mg/dL (70-105); NT PRO B-TYPE NATRIURETIC PEP 192 pg/mL (5-125); TROPONIN I HIGH SENSITIVITY 12 ng/L (<78); UREA NITROGEN BLOOD 9 mg/dL (7-21)
[2023-06-13 21:40] VITALS: BP 152/84; PULSE 63; RESP 18; TEMP 98.3
== END 2023-06-13 21:41 | disposition home or self-care (01) ==
LOC: ER 17:30
DX: R42 Dizziness and giddiness (principal); I10 Essential (primary) hypertension; E11.9 Type 2 diabetes mellitus without complications; F10.90 Alcohol use, unspecified, uncomplicated; Y90.9 Presence of alcohol in blood, level not specified
CPT/HCPCS: 36415; 71045; 80053; 83880; 84484; 85025; 93005; 99285

== ENCOUNTER → 2024-10-27 | Outpatient (CLI) | payer MEDICARE ==
[~2024-10-27] MED LIST changes: -AMLO10TA80 PO; +ASCO500T20 PO; +ASPI-1406 PO; +CHOL125C7 PO; +CRES10 PO; +DOXA1TAB2 PO; +EZET10TA81 PO; +FURO40TA5 PO; +LOSA50TA41 PO; +VIT1CAPS26 MT
== END | disposition home or self-care (01) ==
LOC: PVL 08:46
PROVIDERS: ATTEND Internal Medicine Nephrology
DX: I70.293 Other atherosclerosis of native arteries of extremities, bilateral legs (principal)
CPT/HCPCS: 93923

== ENCOUNTER 2024-11-15 15:13 | Emergency (ER) | payer MEDICARE ==
[~2024-11-15] VITALS: Ht 180.3 cm; Wt 88.0 kg
[2024-11-15 15:19] VITALS: O2SAT 99
[2024-11-15 15:58] VITALS: TEMP 98.3; O2SAT 97
[2024-11-15] MEDS ORDERED: HYDROCODONE/ACETAMINOPHEN 5/325MG TABLET PO STA (18:33)
[2024-11-15 20:32] LABS: BASOPHILS % 0.4 % (0.0-2.0); EOSINOPHILS % 2.4 % (0.0-5.0); HEMATOCRIT. 36.3 % (42.0-52.0); LYMPHOCYTES % 21.2 % (20.0-50.0); MEAN CORPUSCULAR HEMOGLOBIN 31.2 pg (28.0-32.0); MEAN CORPUSCULAR HGB CONC 33.2 g/dL (31.0-37.0); MEAN CORPUSCULAR VOLUME 93.9 fL (80.0-94.0); MEAN PLATELET VOLUME 7.7 fl (7.4-10.4); MONOCYTES % 12.3 % (2.0-8.0); NEUTROPHILS % 63.7 % (40.0-76.0); PLATELET 271 x1000/uL (130-400); RED BLOOD CELL COUNT 3.87 mill/uL (4.7-6.1); RED CELL DISTRIBUTION WIDTH 15.9 % (11.6-14.6); WHITE BLOOD COUNT 4.4 x1000/uL (4.5-11.0)
[2024-11-15 20:35] LABS: CHLORIDE 107 mEq/L (98-107); POTASSIUM 4.4 mEq/L (3.5-5.1); SODIUM 139 mEq/L (136-145)
[2024-11-15 20:36] LABS: CARBON DIOXIDE 23 mEq/L (21-32)
[2024-11-15 20:37] LABS: CALCIUM 9.4 mg/dL (8.7-10.4)
[2024-11-15 20:41] LABS: CREATININE 1.2 mg/dL (0.6-1.3); GLUCOSE 92 mg/dL (70-105); TROPONIN I HIGH SENSITIVITY 13 ng/L (3.0-53); UREA NITROGEN BLOOD 17 mg/dL (9-23)
[2024-11-15 20:55] LABS: INR 1.1; PROTHROMBIN TIME 11.8 sec (9.6-11.0)
[2024-11-15 22:22] VITALS: BP 124/69; PULSE 76; RESP 18
[2024-11-15] MEDS: HYDROCODONE/ACETAMINOPHEN 5/325MG TABLET PO NR (22:22)
[2024-11-16 01:09] LABS: TROPONIN I HIGH SENSITIVITY 12 ng/L (3.0-53)
[2024-11-16] MEDS ORDERED: ACET-2708 MT (01:18)
== END 2024-11-16 01:59 | disposition home or self-care (01) ==
LOC: ER 15:13
DX: R07.89 Other chest pain (principal); I10 Essential (primary) hypertension; R60.0 Localized edema; E11.9 Type 2 diabetes mellitus without complications; Z79.899 Other long term (current) drug therapy; Z79.82 Long term (current) use of aspirin; Z86.73 Personal history of transient ischemic attack (TIA), and cerebral infarction without residual deficits; W18.30XA Fall on same level, unspecified, initial encounter; Y93.89 Activity, other specified; Y92.89 Other specified places as the place of occurrence of the external cause; Y99.8 Other external cause status
CPT/HCPCS: 36415; 71045; 73630; 80048; 83880; 84484; 85025; 93005; 99285

== ENCOUNTER 2024-12-07 11:31 | Inpatient (IN) | payer MEDICARE ==
[~2024-12-07] VITALS: Ht 180.3 cm; Wt 88.9 kg
[~2024-12-07 11:31] MED LIST changes: +ACET-2708 MT
[2024-12-07 12:00] VITALS: BP 156/78; PULSE 82; RESP 19; TEMP 37.1
[2024-12-07] MEDS ORDERED: LIDOCAINE HCL 1% 10 MG/ML 10ML VIAL ONE (13:14)
[2024-12-07] MEDS ORDERED: GUAIFENESIN 200MG/10ML SUGAR FREE UDC PO PRN (16:00)
[2024-12-07] MEDS ORDERED: NA PHOS,M-B/NA PHOS,DI-BA ENEMA 118ML PR PRN (16:00)
[2024-12-07] MEDS ORDERED: CLONIDINE 0.1MG TABLET PO PRN (16:00)
[2024-12-07] MEDS ORDERED: MAGNESIUM/ALUMINUM HYDROXIDE/SIMETHICONE 30ML UDC PO PRN (16:00)
[2024-12-07] MEDS ORDERED: DIPHENHYDRAMINE 50MG/ML VIAL IV PRN (16:00)
[2024-12-07] MEDS ORDERED: DOCUSATE SODIUM 100MG CAPSULE PO PRN (16:00)
[2024-12-07] MEDS ORDERED: VALS320T16 (16:18)
[2024-12-07] MEDS ORDERED: ROSU10CA (16:18)
[2024-12-07] MEDS ORDERED: AMLO10TA80 PO (16:18)
[2024-12-07] MEDS ORDERED: DOXA2TAB2 PO (16:18)
[2024-12-07 16:54] LABS: BASOPHILS % 0.3 % (0.0-2.0); EOSINOPHILS % 1.6 % (0.0-5.0); HEMATOCRIT. 32.7 % (42.0-52.0); HEMOGLOBIN. 10.9 g/dL (14.0-18.0); LYMPHOCYTES % 13.5 % (20.0-50.0); MEAN CORPUSCULAR HEMOGLOBIN 31.4 pg (28.0-32.0); MEAN CORPUSCULAR HGB CONC 33.3 g/dL (31.0-37.0); MEAN CORPUSCULAR VOLUME 94.1 fL (80.0-94.0); MEAN PLATELET VOLUME 7.4 fl (7.4-10.4); MONOCYTES % 14.4 % (2.0-8.0); NEUTROPHILS % 70.2 % (40.0-76.0); PLATELET 265 x1000/uL (130-400); RED BLOOD CELL COUNT 3.47 mill/uL (4.7-6.1); RED CELL DISTRIBUTION WIDTH 16.1 % (11.6-14.6); WHITE BLOOD COUNT 5.3 x1000/uL (4.5-11.0)
[2024-12-07 17:02] LABS: CHLORIDE 110 mEq/L (98-107); POTASSIUM 4.1 mEq/L (3.5-5.1); SODIUM 140 mEq/L (136-145)
[2024-12-07 17:03] LABS: CALCIUM 8.8 mg/dL (8.7-10.4); CARBON DIOXIDE 23 mEq/L (21-32)
[2024-12-07 17:05] LABS: INR 1.1; PARTIAL THROMBOPLASTIN TIME 29.1 sec (23.4-31.0); PROTHROMBIN TIME 11.9 sec (9.6-11.0)
[2024-12-07 17:08] LABS: GLUCOSE 89 mg/dL (70-105); UREA NITROGEN BLOOD 16 mg/dL (9-23)
[2024-12-07] MEDS ORDERED: NALOXONE HCL 0.4MG/ML VIAL IV PRN (18:45)
[2024-12-07] MEDS: DOXAZOSIN MESYLATE 2MG TABLET PO SCH (21:39)
[2024-12-07] MEDS: PANTOPRAZOLE 40MG DR TABLET PO SCH (21:40)
[2024-12-07] MEDS: ENOXAPARIN 40MG/0.4ML SYR SUBCUT SCH (21:40)
[2024-12-07] MEDS: ATORVASTATIN CALCIUM 40MG TABLET PO SCH (21:40)
[2024-12-07] MEDS ORDERED: IOHEXOL-350 100 ML BOTTLE ONE (23:27)
[2024-12-08] VITALS (8 sets, daily range): BP systolic 115–141; BP diastolic 65–76; PULSE 62–87; RESP 17–20; TEMP 35.9–37.1; O2SAT 97–100
[2024-12-08 06:26] LABS: BASOPHILS % 0.4 % (0.0-2.0); EOSINOPHILS % 3.3 % (0.0-5.0); HEMATOCRIT. 34.8 % (42.0-52.0); HEMOGLOBIN. 11.6 g/dL (14.0-18.0); LYMPHOCYTES % 25.4 % (20.0-50.0); MEAN CORPUSCULAR HEMOGLOBIN 31.5 pg (28.0-32.0); MEAN CORPUSCULAR HGB CONC 33.4 g/dL (31.0-37.0); MEAN CORPUSCULAR VOLUME 94.4 fL (80.0-94.0); MEAN PLATELET VOLUME 7.8 fl (7.4-10.4); MONOCYTES % 12.9 % (2.0-8.0); PLATELET 269 x1000/uL (130-400); RED BLOOD CELL COUNT 3.69 mill/uL (4.7-6.1); WHITE BLOOD COUNT 4.7 x1000/uL (4.5-11.0)
[2024-12-08 06:31] LABS: CARBON DIOXIDE 23 mEq/L (21-32); CHLORIDE 107 mEq/L (98-107); POTASSIUM 4.1 mEq/L (3.5-5.1); SODIUM 140 mEq/L (136-145)
[2024-12-08 06:33] LABS: CALCIUM 9.3 mg/dL (8.7-10.4)
[2024-12-08 06:37] LABS: GLUCOSE 95 mg/dL (70-105); UREA NITROGEN BLOOD 12 mg/dL (9-23)
[2024-12-08] MEDS ORDERED: DEXT 5%/0.45% NACL 1000ML 1,000 ML IV SCH (08:00)
[2024-12-08] MEDS ORDERED: DEXTROSE 50% WATER 50ML SYRINGE IV PRN (08:45)
[2024-12-08] MEDS ORDERED: DILTIAZEM HCL 300MG CAPSULE SR 24HR PO SCH (09:00)
[2024-12-08] MEDS ORDERED: BLOOD SUGAR DIAGNOSTIC STRIP TEST SCH ×2 (09:00→12:20)
[2024-12-08] MEDS ORDERED: AMLODIPINE 10MG TABLET PO SCH (09:00)
[2024-12-08] MEDS ORDERED: ASPIRIN 81MG EC TABLET PO SCH (09:00)
[2024-12-08] MEDS ORDERED: NON FORMULARY MED XX SCH (09:00)
[2024-12-08] MEDS: FOLIC ACID 1MG TABLET PO SCH (09:56)
[2024-12-08] MEDS: MULTIVITAMINS,THER W-MINERALS TABLET PO SCH (09:57)
[2024-12-08] MEDS: THIAMINE HCL 100MG TABLET PO SCH (09:57)
[2024-12-08] MEDS: DILTIAZEM HCL 300MG CAPSULE SR 24HR PO SCH (09:57)
[2024-12-08] MEDS: LOSARTAN 100 MG TABLET PO SCH (09:57)
[2024-12-08] MEDS: LINAGLIPTIN 5MG TABLET PO SCH (09:58)
[2024-12-08] MEDS: TAMSULOSIN HCL 0.4MG SR CAPSULE PO SCH (12:07)
[2024-12-08] MEDS: INSULIN LISPRO 100 UNITS/ML SUBCUT SCH (12:50)
[2024-12-08 18:26] LABS: CLARITY URINE CLOUDY (CLEAR); COLOR URINE DARK YELLOW (YELLOW); GLUCOSE URINE NEGATIVE (NEGATIVE); KETONES URINE NEGATIVE (NEGATIVE); LEUKOCYTE ESTERASE URINE TRACE (NEGATIVE); NITRITE URINE NEGATIVE (NEGATIVE); OCCULT BLOOD URINE NEGATIVE (NEGATIVE); PROTEIN URINE TRACE (NEGATIVE); SPECIFIC GRAVITY URINE 1.027 (1.005-1.030)
[2024-12-08 19:03] LABS: BACTERIA URINE NONE SEEN; RBC URINE 0-2 /hpf (0-2); SQUAMOUS EPITHELIAL CELL URINE RARE /lpf (RARE/1+); WBC URINE 0-2 /hpf (0-2)
[2024-12-08] MEDS: FAMOTIDINE 20MG TABLET PO SCH (21:33)
[2024-12-08] MEDS: BLOOD SUGAR DIAGNOSTIC STRIP TEST SCH (21:38)
[2024-12-09] VITALS: BP 140/79; PULSE 72; RESP 18; TEMP 36.6; O2SAT 97
[2024-12-09 04:00] VITALS: BP 115/77; PULSE 76; RESP 18; TEMP 36.4; O2SAT 96
[2024-12-09 07:08] LABS: BASOPHILS % 0.7 % (0.0-2.0); EOSINOPHILS % 2.2 % (0.0-5.0); HEMATOCRIT. 33.7 % (42.0-52.0); HEMOGLOBIN. 11.3 g/dL (14.0-18.0); LYMPHOCYTES % 22.5 % (20.0-50.0); MEAN CORPUSCULAR HEMOGLOBIN 31.3 pg (28.0-32.0); MEAN CORPUSCULAR HGB CONC 33.4 g/dL (31.0-37.0); MEAN CORPUSCULAR VOLUME 93.5 fL (80.0-94.0); MEAN PLATELET VOLUME 7.9 fl (7.4-10.4); MONOCYTES % 10.4 % (2.0-8.0); NEUTROPHILS % 64.2 % (40.0-76.0); PLATELET 265 x1000/uL (130-400); RED BLOOD CELL COUNT 3.61 mill/uL (4.7-6.1); RED CELL DISTRIBUTION WIDTH 16.4 % (11.6-14.6); WHITE BLOOD COUNT 4.9 x1000/uL (4.5-11.0)
[2024-12-09] MEDS ORDERED: IODIXANOL 320MG/ML 100 ML BOTTLE IV ONE (07:17)
[2024-12-09] MEDS ORDERED: HEPARIN 1000 UNITS/ML 10ML ONE (07:17)
[2024-12-09] MEDS ORDERED: LIDOCAINE HCL 1% 20ML VIAL ONE (07:17)
[2024-12-09] MEDS ORDERED: FENTANYL CITRATE/PF 50MCG/ML 2ML VIAL ONE (07:50)
[2024-12-09] MEDS ORDERED: MIDAZOLAM HCL 2 MG/2 ML VIAL ONE (07:50)
[2024-12-09 08:00] VITALS: BP 138/69; PULSE 70; RESP 18; TEMP 36.6; O2SAT 99
[2024-12-09 08:19] LABS: CALCIUM 9.1 mg/dL (8.7-10.4); CARBON DIOXIDE 24 mEq/L (21-32); CHLORIDE 109 mEq/L (98-107); SODIUM 141 mEq/L (136-145)
[2024-12-09 08:25] LABS: CREATININE 1.2 mg/dL (0.6-1.3); GLUCOSE 95 mg/dL (70-105); UREA NITROGEN BLOOD 16 mg/dL (9-23)
[2024-12-09] MEDS: CLOPIDOGREL 75MG TABLET PO SCH (09:00)
[2024-12-09] MEDS: FENTANYL CITRATE/PF 50MCG/ML 2ML VIAL IV NR (10:28)
[2024-12-09 12:00] VITALS: BP 151/90; PULSE 83; RESP 20; TEMP 36.7; O2SAT 100
[2024-12-09] MEDS ORDERED: HYDRALAZINE 20MG/ML VIAL IV PRN (12:00)
[2024-12-09] MEDS: HYDROCODONE/ACETAMINOPHEN 5/325MG TABLET PO PRN (12:42)
[2024-12-09] MEDS ORDERED: HYDROCODONE/ACETAMINOPHEN 5/325MG TABLET PO PRN (13:00)
[2024-12-09] MEDS ORDERED: NALOXONE HCL 0.4MG/ML VIAL IV PRN (13:15)
[2024-12-09 16:00] VITALS: BP 116/97; PULSE 100; RESP 19; TEMP 36.1; O2SAT 95
[2024-12-09 20:00] VITALS: BP 120/73; PULSE 102; RESP 18; TEMP 36.4; O2SAT 96
[2024-12-09] MEDS: HYDROCODONE/ACETAMINOPHEN 7.5/325MG TABLET PO PRN (20:39)
[2024-12-10] VITALS: BP 129/68; PULSE 91; RESP 18; TEMP 36.9; O2SAT 97
[2024-12-10 04:00] VITALS: BP 129/75; PULSE 91; RESP 17; TEMP 36.5; O2SAT 98
[2024-12-10 08:00] VITALS: BP 111/67; PULSE 85; RESP 17; TEMP 35.7; O2SAT 96
[2024-12-10] MEDS: MUPIROCIN 2% OINT 15GM TOP SCH (09:43)
[2024-12-10 10:11] LABS: *CREATININE RANDOM URINE 140.2 mg/dL (Not Estab.); MICROALBUMIN RANDOM URINE 29.7 ug/mL (Not Estab.)
[2024-12-10 12:00] VITALS: BP 106/60; PULSE 81; RESP 18; TEMP 35.8; O2SAT 97
[2024-12-10 13:54] VITALS: BP 106/60; PULSE 81; TEMP 96.5; O2SAT 97
== END 2024-12-10 15:00 | disposition home health service (06) | DRG 271 ==
LOC: 6EST 11:31
PROVIDERS: ADMIT Hospitalist; ATTEND Hospitalist
PROC: 02HV33Z Insertion of Infusion Device into Superior Vena Cava, Percutaneous Approach (ICD-10-PCS; 2024-12-07)
PROC: B548ZZA Ultrasonography of Superior Vena Cava, Guidance (ICD-10-PCS; 2024-12-07)
PROC: 04CN3ZZ Extirpation of Matter from Left Popliteal Artery, Percutaneous Approach (ICD-10-PCS; principal; 2024-12-09)
PROC: 047L3Z1 Dilation of Left Femoral Artery using Drug-Coated Balloon, Percutaneous Approach (ICD-10-PCS; 2024-12-09)
PROC: 047N3Z1 Dilation of Left Popliteal Artery using Drug-Coated Balloon, Percutaneous Approach (ICD-10-PCS; 2024-12-09)
PROC: 047U3ZZ Dilation of Left Peroneal Artery, Percutaneous Approach (ICD-10-PCS; 2024-12-09)
PROC: B41D1ZZ Fluoroscopy of Aorta and Bilateral Lower Extremity Arteries using Low Osmolar Contrast (ICD-10-PCS; 2024-12-09)
DX: E11.51 Type 2 diabetes mellitus with diabetic peripheral angiopathy without gangrene (principal); I13.0 Hypertensive heart and chronic kidney disease with heart failure and stage 1 through stage 4 chronic kidney disease, or unspecified chronic kidney disease; I69.351 Hemiplegia and hemiparesis following cerebral infarction affecting right dominant side; N17.9 Acute kidney failure, unspecified; L97.929 Non-pressure chronic ulcer of unspecified part of left lower leg with unspecified severity; L97.229 Non-pressure chronic ulcer of left calf with unspecified severity; I70.222 Atherosclerosis of native arteries of extremities with rest pain, left leg; I50.9 Heart failure, unspecified; N18.2 Chronic kidney disease, stage 2 (mild); E11.22 Type 2 diabetes mellitus with diabetic chronic kidney disease; E78.5 Hyperlipidemia, unspecified; N40.0 Benign prostatic hyperplasia without lower urinary tract symptoms; S81.812A Laceration without foreign body, left lower leg, initial encounter; Z87.891 Personal history of nicotine dependence; Z79.4 Long term (current) use of insulin; Z79.82 Long term (current) use of aspirin; Z79.84 Long term (current) use of oral hypoglycemic drugs; Z79.899 Other long term (current) drug therapy; Z82.49 Family history of ischemic heart disease and other diseases of the circulatory system; X58.XXXA Exposure to other specified factors, initial encounter; Y93.89 Activity, other specified; Y92.89 Other specified places as the place of occurrence of the external cause; Y99.8 Other external cause status
CPT/HCPCS: 36415; 36573; 37225; 37228; 71045; 75635; 75710; 80048; 80061; 81003; 82043; 82570; 82962; 83036; 83735; 85025; 85347; 86850; 86900; 93005; 97162; A4606; C1725; C1769; C1887; C1893; C1894; C2623; J1644; J1650; J2003; J2250; J3010; J3490; Q9967; C1714

== ENCOUNTER → 2025-01-27 | Outpatient (CLI) | payer MEDICARE ==
[~2025-01-27] MED LIST changes: +AMLO10TA80 PO; +CAFFEINE CITRATE 20MG/ML 3ML VIAL IV ONE; -CRES10 PO; +DAPA10TA PO; -EZET10TA81 PO; -FURO40TA5 PO; +REGADENOSON 0.4 MG/5 ML IV ONE
== END | disposition home or self-care (01) ==
LOC: RAD 08:11
PROVIDERS: ATTEND Internal Medicine Nephrology
DX: R07.9 Chest pain, unspecified (principal)
CPT/HCPCS: 78452; J2785; A9500; J0706